=== PATIENT | female | born 1970 | race African-American/Black ===

== ENCOUNTER → 2020-03-18 | Day surgery (SDC) | payer OTHER ==
[~2020-03-18] MED LIST: ACETAMINOPHEN500 M1 PO; ANTIVERT12.5 MG PO; ATARAX25 MG PO; BUSPAR5 MG PO; COLACE100 MG PO; HCTZ25 MG PO; MOTRIN600 MG PO; OXY-IR 5MG5 MG PO; UROCIT-K10 MEQ PO; ZESTRIL40 MG PO
== END | disposition home or self-care (01) ==
LOC: FAS 07:00
DX: K80.10 Calculus of gallbladder with chronic cholecystitis without obstruction (principal); K66.0 Peritoneal adhesions (postprocedural) (postinfection); K21.9 Gastro-esophageal reflux disease without esophagitis; I10 Essential (primary) hypertension; J44.9 Chronic obstructive pulmonary disease, unspecified; E11.9 Type 2 diabetes mellitus without complications; D50.9 Iron deficiency anemia, unspecified; Z85.028 Personal history of other malignant neoplasm of stomach; Z87.891 Personal history of nicotine dependence
CPT/HCPCS: 93005; J1170; J1644; J2250; J2370; J2704; J2710; J3010; J7120